=== PATIENT | male | born 1995 ===

== ENCOUNTER 2016-11-15 19:22 | Emergency (ER) | payer OTHER ==
--- NOTE | 2016-11-15 21:05 | UC ---
Laceration HPI - HPI Summary HPI Summary: laceration under chin hit his chin on another wrestlers head--- - History Of Current Complaint Chief Complaint: UCLaceration Stated Complaint: CHIN LAC Time Seen by Provider: 11/15/16 21:04 Hx Obtained From: Patient Laceration Location: Face - under chin Mechanism Of Injury: Blunt Trauma Onset/Duration: Sudden Onset, Lasting Hours - 2 Severity: Mild Pain Intensity: 2 Pain Scale Used: 0-10 Numeric Aggravating Factors: Nothing Facial Trauma: 1 - 2 cm laceration - Allergies/Home Medications Allergies/Adverse Reactions: Allergies Allergy/AdvReac Type Severity Reaction Status Date / Time No Known Allergies Allergy Verified 11/15/16 19:47 Home Medications: Home Medications NK [No Home Medications Reported] 11/15/16 [History Confirmed 11/15/16] PMH/Surg Hx/FS Hx/Imm Hx Previously Healthy: Yes - Surgical History Surgical History: None - Social History Occupation: Unemployed Lives: With Family Alcohol Use: Occasionally Substance Use Type: None Smoking Status (MU): Never Smoked Tobacco Review of Systems Constitutional: Negative Skin: Other - laceration under chin Eyes: Negative ENT: Negative Respiratory: Negative Cardiovascular: Negative Gastrointestinal: Negative Genitourinary: Negative Motor: Negative Neurovascular: Negative Musculoskeletal: Negative Neurological: Negative Psychological: Negative Is Patient Immunocompromised?: No All Other Systems Reviewed And Are Negative: Yes Physical Exam Triage Information Reviewed: Yes Appearance: Well-Appearing, No Pain Distress, Well-Nourished Vital Signs: Initial Vital Signs Temp 98.6 F 11/15/16 19:44 Pulse 76 11/15/16 19:44 Resp 12 11/15/16 19:44 BP 112/57 11/15/16 19:44 Pulse Ox 97 11/15/16 19:44 Vital Signs Reviewed: Yes Eye Exam: Normal Eyes: Positive: Conjunctiva Clear ENT Exam: Normal ENT: Positive: Normal ENT inspection, Hearing grossly normal. Negative: Nasal congestion, Nasal drainage, Trismus, Muffled/hoarse voice Dental Exam: Normal Neck exam: Normal Neck: Positive: Supple, Nontender Respiratory Exam: Normal Respiratory: Positive: Chest non-tender, No respiratory distress, No accessory muscle use Cardiovascular Exam: Normal Cardiovascular: Positive: RRR, No Murmur, Pulses Normal, Brisk Capillary Refill Musculoskeletal Exam: Normal Musculoskeletal: Positive: Strength Intact, ROM Intact, No Edema Neurological Exam: Normal Neurological: Positive: Alert, Muscle Tone Normal Psychological Exam: Normal Psychological: Positive: Normal Response To Family Skin Exam: Normal Skin: Positive: Other - 2 cm laceration under chin Laceration Repair - Laceration Repair 1 Description: Linear Laceration Size After Repair: Length (cm) - 2, Width (mm) - 3, Depth (mm) - 3 Modified For Repair: No Type Injection: Local Anesthesia Used: 1.0% Lido Additive Used (in ml): Epi Cleansing Completed Via Routine Prep: Yes Irrigation With Pressure Irrigation Device: Yes Closure Material: Sutures Closure Method: Single Layer - 5 number 6.0 prolene suture Suture Of: Skin Suture Type: Prolene Re-Evaluation - Re-Evaluation First Eval Change: Improved - wound well approximated--no bleding patient tolerated well Laceration Course/Dx - Course/Dx Course Of Treatment: gentle sopa and water wash---patient advised not to wrestle and if he does to use very very bulky dressing --and he runs the risk of opening the wound and it not being able to be repaired---return in 5 days for suture removal - Differential Dx - Laceration/Wound Differental Diagnoses: Avulsion, Cellulitis, Laceration, Puncture Wound Provider Diagnoses: 2.0 cm laceration repair under chin Discharge - Discharge Plan Condition: Stable Disposition: HOME Patient Education Materials: Facial Laceration (ED) Referrals: [facility] [Outside] - 5 Days Additional Instructions: Suture removal in 5 days
[2016-11-15] MEDS ORDERED: Lidocaine 1% MPF wEPI 200,000* 30 ML SDV INJ ONE (21:09)
== END 2016-11-15 22:16 | disposition home or self-care (01) ==
LOC: UCEAST 19:22
DX: S01.81XA Laceration without foreign body of other part of head, initial encounter (principal); W51.XXXA Accidental striking against or bumped into by another person, initial encounter; Y93.72 Activity, wrestling; Y92.9 Unspecified place or not applicable
CPT/HCPCS: 12011; 99202; G0463; J2001